=== PATIENT | female | born 1950 | race Caucasian/White ===

== ENCOUNTER 2020-05-31 18:11 | Emergency (ER) | payer OTHER ==
[~2020-05-31] VITALS: Ht 165.1 cm; Wt 99.8 kg
[~2020-05-31 18:11] MED LIST: Aspirin EC81 MG PO; CALCA500CH PO; CITA20 PO; Cranberry500 MG; DILT60 PO; FIBER LAXATIVE PO; LEVSOD50 PO; LOSARTAN POTASS25 MG PO; METF500C PO; Multiple Vitam1 EAC1 PO; TRIHYD5075 PO; Zocor20 MG PO
== END 2020-05-31 20:46 | disposition home or self-care (01) ==
LOC: ER 18:11
DX: S30.850A Superficial foreign body of lower back and pelvis, initial encounter (principal); Z79.899 Other long term (current) drug therapy; Z79.84 Long term (current) use of oral hypoglycemic drugs; Z79.82 Long term (current) use of aspirin; Z87.891 Personal history of nicotine dependence; W45.8XXA Other foreign body or object entering through skin, initial encounter
CPT/HCPCS: 10120; 72170; 99283-25

== ENCOUNTER 2021-06-29 11:30 | Day surgery (SDC) | payer OTHER ==
[~2021-06-29] VITALS: Ht 165.1 cm; Wt 96.7 kg
[~2021-06-29 11:30] MED LIST changes: +DYAZIDE 37.5-21 EACH PO; -TRIHYD5075 PO
== END 2021-06-29 14:56 | disposition home or self-care (01) ==
LOC: ORSCSDS 11:30
PROVIDERS: Internal Medicine Gastroenterology
PROC: 0DB58ZX Excision of Esophagus, Via Natural or Artificial Opening Endoscopic, Diagnostic (ICD-10-PCS; principal; 2021-06-29 12:45)
PROC: 0DBK8ZX Excision of Ascending Colon, Via Natural or Artificial Opening Endoscopic, Diagnostic (ICD-10-PCS; principal; 2021-06-29 12:45)
PROC: 0D758ZZ Dilation of Esophagus, Via Natural or Artificial Opening Endoscopic (ICD-10-PCS; principal; 2021-06-29 12:45)
PROC: 0DBH8ZX Excision of Cecum, Via Natural or Artificial Opening Endoscopic, Diagnostic (ICD-10-PCS; principal; 2021-06-29 12:45)
DX: Z12.11 Encounter for screening for malignant neoplasm of colon (principal); Z86.010 Personal history of colon polyps; R13.10 Dysphagia, unspecified; D12.2 Benign neoplasm of ascending colon; K22.70 Barrett's esophagus without dysplasia; G47.33 Obstructive sleep apnea (adult) (pediatric); E11.9 Type 2 diabetes mellitus without complications; Z87.891 Personal history of nicotine dependence; Z79.82 Long term (current) use of aspirin; Z79.84 Long term (current) use of oral hypoglycemic drugs; I10 Essential (primary) hypertension; E03.9 Hypothyroidism, unspecified; E66.9 Obesity, unspecified; Z68.35 Body mass index [BMI] 35.0-35.9, adult; Z79.899 Other long term (current) drug therapy
CPT/HCPCS: 82947; 88305; J2250; J2405; J2704; J7120

== ENCOUNTER → 2022-03-08 | Outpatient (CLI) | payer OTHER ==
[2022-03-08 15:19] LABS: Free Thyroxine 0.91 ng/dL (0.70-1.60); Thyroid Stimulating Hormone 2.96 uIU/mL (0.360-4.800); Triiodothyronine, Free 2.22 pg/mL (2.18-3.98)
[2022-03-08 15:20] LABS: Bun/Creatinine Ratio 22.6 (12.0-20.0); Calcium, Blood 8.7 mg/dL (8.5-10.1); Creatinine, Blood 0.75 mg/dL (0.40-1.00); Potassium, Blood 4.1 mmol/L (3.5-5.5)
== END | disposition home or self-care (01) ==
LOC: LAB SHORT 13:16 → LAB 13:16
PROVIDERS: Hospitalist
DX: E11.69 Type 2 diabetes mellitus with other specified complication (principal); E03.9 Hypothyroidism, unspecified; I11.0 Hypertensive heart disease with heart failure
CPT/HCPCS: 80048; 82043; 84439; 84443; 84481

== ENCOUNTER → 2023-01-18 | Outpatient (CLI) | payer OTHER ==
[2023-01-18 15:54] LABS: Free Thyroxine 0.94 ng/dL (0.70-1.60); Percent Saturation 34.2 % (15.0-50.0)
[2023-01-18 16:38] LABS: Thyroid Stimulating Hormone 3.01 uIU/mL (0.360-4.800); Triiodothyronine, Free 1.78 pg/mL (2.18-3.98)
== END | disposition home or self-care (01) ==
LOC: LAB SHORT 13:26 → LAB 13:26
PROVIDERS: Hospitalist
DX: D53.9 Nutritional anemia, unspecified (principal); E03.9 Hypothyroidism, unspecified; D70.9 Neutropenia, unspecified
CPT/HCPCS: 82607; 82728; 82746; 83540; 83550; 84439; 84443; 84481; 85651

== ENCOUNTER 2024-09-20 11:45 | Day surgery (SDC) | payer OTHER ==
[~2024-09-20] VITALS: Ht 165.1 cm; Wt 93.8 kg
[~2024-09-20 11:45] MED LIST changes: +Lactated Ringer's 1,000 ML IV ONE
[2024-09-20] MEDS ORDERED: Lactated Ringer's 1,000 ML IV ONE (12:00)
[2024-09-20] MEDS ORDERED: ALKUMS300 MG (12:00)
[2024-09-20] MEDS ORDERED: METAMUCIL POWD798 GM (12:01)
[2024-09-20] MEDS ORDERED: FAMO20 (12:01)
[2024-09-20] MEDS ORDERED: Vitamin D1000 UNI1 (12:01)
[2024-09-20] MEDS ORDERED: propofoL 50 ML IV ONE (13:27)
[2024-09-20 13:38] VITALS: BP 126/57
== END 2024-09-20 13:30 | disposition home or self-care (01) ==
LOC: ORSCSDS 11:45
PROVIDERS: Specialist
PROC: 0DB58ZX Excision of Esophagus, Via Natural or Artificial Opening Endoscopic, Diagnostic (ICD-10-PCS; principal; 2024-09-20 13:15)
DX: K22.70 Barrett's esophagus without dysplasia (principal); R13.10 Dysphagia, unspecified; K21.9 Gastro-esophageal reflux disease without esophagitis; E11.9 Type 2 diabetes mellitus without complications; E03.9 Hypothyroidism, unspecified; I10 Essential (primary) hypertension; G47.33 Obstructive sleep apnea (adult) (pediatric); Z79.84 Long term (current) use of oral hypoglycemic drugs; Z79.899 Other long term (current) drug therapy; Z79.82 Long term (current) use of aspirin
CPT/HCPCS: 82947; 88305; 88312; J2704; J7120

== ENCOUNTER 2025-06-13 00:11 | Day surgery (SDC) | payer OTHER ==
[2025-06-13] VITALS (7 sets, daily range): BP systolic 129–143; BP diastolic 42–61
[~2025-06-13 00:11] MED LIST changes: +ALKUMS300 MG; +DILT120 PO; +FAMO20 PO; -LEVSOD50 PO; +LEVSOD75 PO; -Lactated Ringer's 1,000 ML IV ONE; +METAMUCIL POWD798 GM; +Vitamin D1000 UNI1
[2025-06-13] MEDS ORDERED: NS 250 ML IV SCH (07:00)
[2025-06-13] MEDS ORDERED: IRON18 M1 PO (08:45)
== END 2025-06-13 12:12 | disposition home or self-care (01) ==
LOC: ATC 00:11 → EDSTATUS 06-11 15:55 → LAB FUT 06-11 15:55
DX: D72.818 Other decreased white blood cell count (principal); D53.9 Nutritional anemia, unspecified; E11.9 Type 2 diabetes mellitus without complications; I10 Essential (primary) hypertension; E78.5 Hyperlipidemia, unspecified; E89.0 Postprocedural hypothyroidism; K22.70 Barrett's esophagus without dysplasia; F41.1 Generalized anxiety disorder; Z87.891 Personal history of nicotine dependence
CPT/HCPCS: 36415; 36430; 86850; 86900; 86901; 86923; J7050; P9016